=== PATIENT | female | born 1970 | race Caucasian/White ===

== ENCOUNTER 2019-02-14 20:39 | Emergency (ER) | payer OTHER ==
[~2019-02-14] VITALS: Ht 175.3 cm; Wt 61.2 kg
[2019-02-14] MEDS ORDERED: IBUP200C5 PO (20:50)
[2019-02-14] MEDS ORDERED: CLIN150C16 PO (20:50)
--- NOTE | 2019-02-14 21:04 | NUR ---
Dr Freitas at bedside for MSE.
[2019-02-14] MEDS ORDERED: FAMOTIDINE 20 MG TABLET PO ONE (21:15)
[2019-02-14] MEDS ORDERED: predniSONE 20 MG TABLET PO ONE (21:15)
[2019-02-14] MEDS ORDERED: CETIRIZINE HCL 10 MG TABLET PO ONE (21:15)
[2019-02-14] MEDS ORDERED: predniSONE 20 MG TABLET ONE (21:30)
[2019-02-14] MEDS ORDERED: FAMOTIDINE 20 MG TABLET ONE (21:30)
--- NOTE | 2019-02-14 21:30 | NUR ---
Xray at bedside.
[2019-02-14] MEDS ORDERED: CETIRIZINE HCL 10 MG TABLET ONE (21:31)
[2019-02-14 21:36] LABS: BASOPHILS # (AUTO) 0.1 K/uL (0.0-8.0); BASOPHILS % (AUTO) 1.4 % (0.0-2.0); EOSINOPHILS # (AUTO) 0.2 K/uL (0.0-0.7); EOSINOPHILS % (AUTO) 2.8 % (0.0-7.0); HEMATOCRIT 48.1 % (31.2-41.9); HEMOGLOBIN 16.3 g/dL (10.9-14.3); LYMPHOCYTES # (AUTO) 2.6 K/uL (20.0-40.0); LYMPHOCYTES % (AUTO) 30.9 % (20.5-51.5); MEAN CORPUSCULAR HEMOGLOBIN 33.9 uug (24.7-32.8); MEAN CORPUSCULAR HGB CONC 34 g/dL (32.3-35.6); MEAN CORPUSCULAR VOLUME 99.8 fL (75.5-95.3); MONOCYTES # (AUTO) 1.2 K/uL (2.0-10.0); MONOCYTES % (AUTO) 13.9 % (0.0-11.0); NEUTROPHILS # (AUTO) 4.4 K/uL (1.8-8.9); PLATELET COUNT (AUTO) 241 K/uL (179-408); RED BLOOD CELL COUNT(AUTO) 4.82 MIL/uL (3.63-4.92); WHITE BLOOD COUNT (AUTO) 8.6 K/uL (3.8-11.8)
[2019-02-14 21:49] LABS: CREATININE 0.7 mg/dL (0.6-1.3); POTASSIUM 3.8 mmol/L (3.5-5.1)
[2019-02-14 22:02] LABS: BILIRUBIN,DIRECT 0.2 mg/dL (0.0-0.2); TOTAL PROTEIN, SERUM 6.6 g/dL (6.4-8.2)
[2019-02-14] MEDS ORDERED: DOXYCYCLINE HYCLATE 100 MG TABLET PO ONE (22:30)
[2019-02-14] MEDS ORDERED: DOXYCYCLINE HYCLATE 100 MG TABLET ONE (22:30)
--- NOTE | 2019-02-14 22:38 | NUR ---
Patient discharged to home in stable conditon. Written and verbal after care instructions given. Patient verbalizes understanding of instructions. Pt ambulated out of ER with steady gait, no acute signs of distress, VSS, all belongings taken, IV site discontinued.
[2019-02-14 22:40] VITALS: BP 135/75
== END 2019-02-14 22:40 | disposition home or self-care (01) ==
LOC: ER 20:41
DX: L04.0 Acute lymphadenitis of face, head and neck (principal); T78.40XA Allergy, unspecified, initial encounter; R07.89 Other chest pain; Z88.0 Allergy status to penicillin; Z79.1 Long term (current) use of non-steroidal anti-inflammatories (NSAID); Z79.2 Long term (current) use of antibiotics; Z90.710 Acquired absence of both cervix and uterus
CPT/HCPCS: 36415; 71045; 80048; 80076; 83880; 84484; 85025; 93005; 99284; J7512; 70030-TC; A4663